=== PATIENT | female | born 1935 | race Caucasian/White ===

== ENCOUNTER 2017-07-08 19:05 | Emergency (ER) | payer OTHER ==
[2017-07-08 19:24] VITALS: BP 133/63; PULSE 78; TEMP 98.2; BMI 28.3
[2017-07-08] MEDS ORDERED: SODIUM CHLORIDE 1,000 ML IV STA (19:36)
[2017-07-08] MEDS ORDERED: KETOROLAC TROMETHAMINE 30 MG/1 ML VIAL IVPUSH ONE (19:37)
[2017-07-08] MEDS ORDERED: ACETAMINOPHEN 325 MG TABLET (FP) PO ONE (19:38)
[2017-07-08 19:51] LABS: BASO % 0.7 % (0-2.0); EOS % 1.5 % (0-4.5); HEMATOCRIT 31.5 % (32.4-45.2); HEMOGLOBIN 10.5 GM/dl (10.7-15.3); LYMPH % 26.9 % (8-40); MCH 30.9 pg (25.7-33.7); MCHC 33.2 g/dl (32.0-36.0); MEAN PLT VOLUME 7.5 fl (7.5-11.1); MONO % 9.2 % (3.8-10.2); NEUT % 61.7 % (42.8-82.8); PLATELET COUNT 276 K/MM3 (134-434); RBC 3.39 M/mm3 (3.60-5.2); RDW 12.6 % (11.6-15.6)
--- NOTE | 2017-07-08 20:05 | PDOC ---
History of Present Illness - History of Present Illness Initial Comments: 07/08/17 20:06 Patient is an 81 F, with PMHx of type 2 diabetes, HTN, left hip fracture 05/18/17 who was BIBA from the assisted living home [facility] for high blood glucose of 597. Her normal blood glucose after dinner is in the 200 range.Patient is does not have any complaints at this time. She denies sore throat, cough, fever, chills, nausea vomiting, diarrhea. She denies chest pain, SOB, dizziness, headache. She denies dysuria or any other urinary complaints. Allergies: NKDA <Lydia Hussein - Last Filed: 07/08/17 20:06> <Kodi Crawford - Last Filed: 07/08/17 21:28> - General Chief Complaint: Blood Sugar Problem Stated Complaint: BLOOD SUGAR DISCREPANCY Time Seen by Provider: 07/08/17 19:35 Past History <Lydia Hussein - Last Filed: 07/08/17 20:06> - Past Medical History Anemia: Yes COPD: No Diabetes: Yes GI Disorders: Yes (CONSTIPATION) HTN: Yes Hypercholesterolemia: Yes Other medical history: VITAMIN D DEFICIENCY, HYPOCALCEMIA - Suicide/Smoking/Psychosocial Hx Smoking History: Never smoked <Kodi Crawford - Last Filed: 07/08/17 21:28> - Past Medical History Allergies/Adverse Reactions: Allergies Allergy/AdvReac Type Severity Reaction Status Date / Time No Known Allergies Allergy Unverified 07/08/17 19:07 Home Medications: Ambulatory Orders Acetaminophen [Tylenol] 650 mg PO PRN PRN 07/08/17 Ascorbic Acid [Vitamin C -] 500 mg PO BID 07/08/17 Atorvastatin Ca [Lipitor] 20 mg PO HS 07/08/17 Calcium Carbonate/Vitamin D3 [Calcium 500 + Vit D Caplet] 1 each PO BID Cholecalciferol (Vitamin D3) [Vitamin D3] 1,000 unit PO DAILY 07/08/17 Cyanocobalamin [Vitamin B12 -] 1,000 mcg PO DAILY 07/08/17 Docusate Sodium [Colace -] 100 mg PO DAILY 07/08/17 Ferrous Sulfate 325 mg PO BID 07/08/17 Hydrochlorothiazide 25 mg PO DAILY 07/08/17 Insulin Glargine,Hum.rec.anlog [Lantus Solostar PEN (NF)] 18 units SQ DAILY Metformin HCl [Glucophage] 1,000 mg PO BID 07/08/17 Metoprolol Tartrate 12.5 mg PO DAILY 07/08/17 Oxycodone HCl/Acetaminophen [Percocet 5-325 mg Tablet] 1 - 2 tab PO Q4H PRN Quinapril HCl 20 mg PO DAILY 07/08/17 Sitagliptin Phosphate [Januvia] 100 mg PO DAILY 07/08/17 Review of Systems - Review of Systems Comments:: 07/08/17 20:06 CONSTITUTIONAL: Absent: Fever, Chills, Diaphoresis, Generalized Weakness, Malaise, Loss of Appetite HEENT: Absent: Rhinorrhea, Nasal Congestion, Throat Pain, Throat Swelling, Difficulty Swallowing, Mouth Swelling, Ear Pain, Eye Pain, Visual Changes CARDIOVASCULAR: Absent: Chest Pain, Syncope, Palpitations, Irregular Heart Rate, Lightheadedness , Peripheral Edema MUSCULOSKELETAL: Absent: Myalgia, Arthralgia, Joint Swelling, Back pain, Neck Pain SKIN: Absent: Rash, Itching, Pallor Constitutional: No: Symptoms Reported, See HPI, Chills, Diaphoresis, Fever, Loss of Appetite, Malaise, Night Sweats, Weakness, Weight Stable, Unintentional Wgt. Loss, Unexplained wgt Loss, Other HEENTM: No: Symptoms Reported, See HPI, Eye Pain, Blurred Vision, Tearing, Recent change in vision, Double Vision, Cataracts, Ear Pain, Ocular Prothesis, Ear Discharge, Nose Pain, Nose Congestion, Tinnitus, Nose Bleeding, Hearing Loss , Throat Pain, Throat Swelling, Mouth Pain, Dental Problems, Difficulty Swallowing, Mouth Swelling, Other Respiratory: No: Symptoms reported, See HPI, Cough, Orthopnea, Shortness of Breath, SOB with Exertion, SOB at Rest, Stridor, Wheezing, Productive cough, Hemoptysis, Other ABD/GI: No: Symptoms Reported, See HPI, Abdominal Distended, Abd. Pain w/ defecation, Blood Streaked Bowels, Constipated, Diarrhea, Difficulty Swallowing , Nausea, Poor Appetite, Poor Fluid Intake, Rectal Bleeding, Vomiting, Indigestion, Abdominal cramping, Tarry Stools, Other : No: Symptoms Reported, See HPI, Burning, Dysuria, Discharge, Frequency, Flank Pain, Hematuria, Incontinence, Pain, Urgency, Testicular Mass, Testicular Swelling, Lesions, Testicular Pain, Other Musculoskeletal: No: Symptoms Reported, See HPI, Back Pain, Gout, Joint Pain, Joint Swelling, Muscle Pain, Muscle Weakness, Neck Pain, Joint Stiffness, Other Integumentary: No: Symptoms Reported, See HPI, Bruising, Change in Color, Change in Hair/Nails, Dryness, Erythema, Flushing, Lesions, Lumps, Pallor, Pruritus, Rash, Sweating, Other Neurological: No: Headache, Numbness, Paresthesia, Seizure, Tingling, Tremors, Weakness, Unsteady Gait, Ataxia, Dizziness, Other Psychiatric: No: Anxiety, Depression, Frequent Crying, Stressors, Sleep Pattern Change, Emotional Problems, Mood Swings, Change in Appetite, Other Endocrine: No: Symptoms Reported, See HPI, Excessive Sweating, Flushing, Intolerance to Cold, Intolerance to Heat, Increased Hunger, Increased Thirst, Increased Urine, Unexplained Weight Gain, Unexplained Weight Loss, Change in Weight, Other Hematologic/Lymphatic: No: Symptoms Reported, See HPI, Anemia, Blood Clots, Easy Bleeding, Easy Bruising, Bleeding Diathesis, Lymph Node Abnormalities, Swollen Glands, Other All Other Systems: Reviewed and Negative <Lydia Hussein - Last Filed: 07/08/17 20:06> *Physical Exam - Vital Signs Last Vital Signs Temp Pulse Resp BP Pulse Ox 98.2 F 78 16 133/63 97 07/08/17 19:10 07/08/17 19:10 07/08/17 19:10 07/08/17 19:10 07/08/17 19:10 - Physical Exam Comments: 07/08/17 20:06 GENERAL: The patient is awake, alert, and fully oriented, in no acute distress. HEAD: Normal with no signs of trauma. EYES: Pupils equal, round and reactive to light, extraocular movements intact, sclera anicteric, conjunctiva clear. EXTREMITIES: Normal range of motion, no edema. Sensation intact. Circulation intact. NEUROLOGICAL: Normal speech, normal gait. PSYCH: Normal mood, normal affect. SKIN: Warm, Dry, normal turgor, no rashes or lesions noted. <Lydia Hussein - Last Filed: 07/08/17 20:06> - Vital Signs Last Vital Signs Temp Pulse Resp BP Pulse Ox 98.2 F 78 16 133/63 97 07/08/17 19:10 07/08/17 19:10 07/08/17 19:10 07/08/17 19:10 07/08/17 19:10 <Kodi Crawford - Last Filed: 07/08/17 21:28> ED Treatment Course - LABORATORY CBC & Chemistry Diagram: 07/08/17 19:40 07/08/17 19:40 - ADDITIONAL ORDERS Additional order review: 07/08/17 19:40 RBC 3.39 L MCV 93.0 MCHC 33.2 RDW 12.6 MPV 7.5 Neutrophils % 61.7 Lymphocytes % 26.9 Monocytes % 9.2 Eosinophils % 1.5 Basophils % 0.7 <Lydia Hussein - Last Filed: 07/08/17 20:06> - LABORATORY CBC & Chemistry Diagram: 07/08/17 19:40 07/08/17 19:40 - ADDITIONAL ORDERS Additional order review: 07/08/17 19:40 RBC 3.39 L MCV 93.0 MCHC 33.2 RDW 12.6 MPV 7.5 Neutrophils % 61.7 Lymphocytes % 26.9 Monocytes % 9.2 Eosinophils % 1.5 Basophils % 0.7 <Kodi Crawford - Last Filed: 07/08/17 21:28> Medical Decision Making - Medical Decision Making 07/08/17 21:24 Patient with history of dementia and diabetes sent from the [facility] for evaluation of hyperglycemia. Her morning fasting glucose was good this morning, and then this evening she had glucose greater than 500. The patient denies all symptoms. She is awake and alert and speaking clearly. Her home medications for diabetes include metformin 1000 mg twice a day and Lantus 18 units once a day. Initial laboratory studies reviewed: Patient got 5 units of IV short acting insulin. She will have repeat blood glucose tested. There is no sign of anion gap. There is no sign of diabetic ketoacidosis. Impression: Uncomplicated diabetic hyperglycemia. Repeat blood glucose testing is pending. Patient endorsed to Dr. Janice Castano pending repeat glucose. If repeat glucose is in a good range, patient to be discharged back to the [facility] for further management. Laboratory Results - last 24 hr 07/08/17 07/08/17 19:40 19:40 WBC 8.0 RBC 3.39 L Hgb 10.5 L Hct 31.5 L MCV 93.0 MCH 30.9 MCHC 33.2 RDW 12.6 Plt Count 276 MPV 7.5 Neutrophils % 61.7 Lymphocytes % 26.9 Monocytes % 9.2 Eosinophils % 1.5 Basophils % 0.7 Sodium 135 L Potassium 5.2 H Chloride 100 Carbon Dioxide 30 H Anion Gap 5 L BUN 38 H Creatinine 1.3 Creat Clearance w eGFR 39.12 Random Glucose 349 H* Calcium 9.4 Total Bilirubin 1.0 AST 16 ALT 8 L Alkaline Phosphatase 98 H Total Protein 6.2 L Albumin 3.6 07/08/17 21:27 <Kodi Crawford - Last Filed: 07/08/17 21:28> *DC/Admit/Observation/Transfer - Attestations Scribe Attestion: 07/08/17 20:08 Documentation prepared by Lydia Hussein, acting as medical device engineer for Kodi Crawford MD. <Lydia Hussein - Last Filed: 07/08/17 20:06> <Kodi Crawford - Last Filed: 07/08/17 21:28> Diagnosis at time of Disposition: Diabetes mellitus with hyperglycemia Qualifiers: Diabetes mellitus type: type 2 Diabetes mellitus residential insulin use: unspecified residential insulin use status Qualified Code(s): E11.65 - Type 2 diabetes mellitus with hyperglycemia - Discharge Dispostion Condition at time of disposition: Stable - Referrals Referrals: Bolivar Sahni MD [Primary Care Provider] - - Patient Instructions - Post Discharge Activity
[2017-07-08 20:20] LABS: ALBUMIN 3.6 g/dl (3.5-5.0); ALK PHOS 98 U/L (32-92); ANION GAP 5 (8-16); BLOOD UREA NITROGEN 38 mg/dl (7-18); CALCIUM 9.4 mg/dl (8.4-10.2); CHLORIDE 100 mmol/L (98-107); CO2 30 mmol/L (22-28); CREATININE 1.3 mg/dl (0.6-1.3); POTASSIUM 5.2 mmol/L (3.5-5.1); SGOT/AST 16 U/L (10-42); SGPT/ALT 8 U/L (10-40); SODIUM 135 mmol/L (136-145); TOT PROT 6.2 g/dl (6.4-8.3)
[2017-07-08 20:23] LABS: GLUCOSE,RANDOM 349 mg/dl (74-106)
[2017-07-08] MEDS ORDERED: INSULIN REGULAR HUMAN 100 UNITS/ML *VIAL IVPUSH STA (20:27)
[2017-07-08] MEDS ORDERED: INSULIN REGULAR HUMAN 100 UNITS/ML *VIAL ONE (20:33)
[2017-07-08 21:26] LABS: VENOUS PC02 52.8 mmHg (38-52); VENOUS PH 7.37 (7.32-7.42); VENOUS PO2 33.8 mmHg (28-48)
[2017-07-08] MEDS ORDERED: HEMOQUE TEST 1 EACH EACH ONE (21:54)
[2017-07-08 22:31] LABS: URINE APPEARANCE Clear; URINE BILIRUBIN Negative (NEGATIVE); URINE BLOOD Negative (NEGATIVE); URINE GLUCOSE (UA) Trace (NEGATIVE); URINE KETONE Negative (NEGATIVE); URINE LEUK ESTERASE Negative (NEGATIVE); URINE NITRITE Negative (NEGATIVE); URINE PROTEIN 1+ (NEGATIVE); URINE UROBILINOGEN 0.2 (0.2-1.0)
[2017-07-08 22:32] LABS: URINE COLOR YELLOW
--- NOTE | 2017-07-08 22:39 | PDOC ---
*Physical Exam - Vital Signs Last Vital Signs Temp Pulse Resp BP Pulse Ox 98.2 F 78 16 133/63 97 07/08/17 19:10 07/08/17 19:10 07/08/17 19:10 07/08/17 19:10 07/08/17 19:10 ED Treatment Course - LABORATORY CBC & Chemistry Diagram: 07/08/17 19:40 07/08/17 19:40 - ADDITIONAL ORDERS Additional order review: Laboratory Results 07/08/17 07/08/17 07/08/17 22:20 21:58 20:10 VBG pH 7.37 POC VBG pCO2 52.8 H POC VBG pO2 33.8 Mixed VBG HCO3 30.5 H Sodium Potassium Chloride Carbon Dioxide Anion Gap BUN Creatinine Creat Clearance w eGFR POC Glucometer [phone] Random Glucose Calcium Total Bilirubin AST ALT Alkaline Phosphatase Total Protein Albumin Urine Color Yellow Urine Appearance Clear Urine pH 7.0 Ur Specific [place] 1.015 Urine Protein 1+ H Urine Glucose (UA) Trace Urine Ketones Negative Urine Blood Negative Urine Nitrite Negative Urine Bilirubin Negative Urine Urobilinogen 0.2 Ur Leukocyte Esterase Negative 07/08/17 19:40 VBG pH POC VBG pCO2 POC VBG pO2 Mixed VBG HCO3 Sodium 135 L Potassium 5.2 H Chloride 100 Carbon Dioxide 30 H Anion Gap 5 L BUN 38 H Creatinine 1.3 Creat Clearance w eGFR 39.12 POC Glucometer Random Glucose 349 H* Calcium 9.4 Total Bilirubin 1.0 AST 16 ALT 8 L Alkaline Phosphatase 98 H Total Protein 6.2 L Albumin 3.6 Urine Color Urine Appearance Urine pH Ur Specific [place] Urine Protein Urine Glucose (UA) Urine Ketones Urine Blood Urine Nitrite Urine Bilirubin Urine Urobilinogen Ur Leukocyte Esterase 07/08/17 07/08/17 21:58 19:40 RBC 3.39 L MCV 93.0 MCHC 33.2 RDW 12.6 MPV 7.5 Neutrophils % 61.7 Lymphocytes % 26.9 Monocytes % 9.2 Eosinophils % 1.5 Basophils % 0.7 POC Glucometer [phone] - Medications Given in the ED: ED Medications Discontinued Medications Generic Name Dose Route Start Last Admin Trade Name Freq PRN Reason Stop Dose Admin Acetaminophen 650 mg 07/08/17 19:38 07/08/17 20:22 Tylenol - PO 07/08/17 19:39 Not Given ONCE ONE Sodium Chloride 1,000 mls @ 1,000 mls/hr 07/08/17 19:36 07/08/17 20:00 Normal Saline - IV 07/08/17 20:35 1,000 mls/hr ASDIR STA Administration Insulin Human Regular 5 units 07/08/17 20:27 07/08/17 20:30 Novolin R Vial *For Ivpush Or Iv Drip Only* IVPUSH 07/08/17 20:28 5 units ONCE STA Administration Ketorolac Tromethamine 30 mg 07/08/17 19:37 07/08/17 20:22 Toradol Injection - IVPUSH 07/08/17 19:38 Not Given ONCE ONE Medical Decision Making - Medical Decision Making 07/08/17 22:38 Care of this patient received from Dr. Crawford Repeat fingerstick glucose at 10 PM was 175 Clean catch urinalysis showed no ketones or evidence of urinary tract infection The patient will be discharged with follow-up with her primary care practitioner within the next 2-3 days. Otherwise, she should continue her medications/diet as previously prescribed *DC/Admit/Observation/Transfer Diagnosis at time of Disposition: Diabetes mellitus with hyperglycemia Qualifiers: Diabetes mellitus type: type 2 Diabetes mellitus mcfp insulin use: unspecified mcfp insulin use status Qualified Code(s): E11.65 - Type 2 diabetes mellitus with hyperglycemia - Discharge Dispostion Disposition: HOME Condition at time of disposition: Stable - Referrals Referrals: Bolivar Sahni MD [Primary Care Provider] - - Patient Instructions Printed Discharge Instructions: DI for Hyperglycemia -- Adult Additional Instructions: Continue medications as prescribed Follow-up with primary care provider within the next 2-3 days Return to ER if hyperglycemia is persistent - Post Discharge Activity
[2017-07-08 22:52] LABS: EPI CELLS 0-2 /HPF; URINE RBC NONE SEEN /hpf (0-3); URINE WBC 0-2 (0-5)
== END 2017-07-09 01:04 | disposition home or self-care (01) ==
LOC: MERGE 19:05 → FER 19:05
PROC: 3E033VG Introduction of Insulin into Peripheral Vein, Percutaneous Approach (ICD-10-PCS; principal; 2017-07-08)
PROC: 3E0337Z Introduction of Electrolytic and Water Balance Substance into Peripheral Vein, Percutaneous Approach (ICD-10-PCS; 2017-07-08)
DX: E11.65 Type 2 diabetes mellitus with hyperglycemia (principal); I10 Essential (primary) hypertension; K59.00 Constipation, unspecified
CPT/HCPCS: 36415; 80053; 81003; 81015; 82803; 82962; 85025; 99282-25